=== PATIENT | female | born 1965 | race Caucasian/White ===

== ENCOUNTER 2023-07-27 06:02 | Day surgery (SDC) | payer OTHER ==
[~2023-07-27] VITALS: Ht 144.8 cm; Wt 71.7 kg
[2023-07-27] MEDS ORDERED: fentaNYL citrate 0.05 MG/ML VIAL ONE (07:14)
[2023-07-27] MEDS ORDERED: LIDOCAINE 2% 100 MG/5 ML UJET TP ONE (07:14)
[2023-07-27] MEDS ORDERED: fentaNYL citrate 0.05 MG/ML VIAL IVP ONE (09:45)
== END 2023-07-27 09:07 | disposition home or self-care (01) ==
LOC: MDS 06:02 → MMU 06:29 → MDS 09:07
PROVIDERS: ATTEND Internal Medicine Gastroenterology
DX: Z12.11 Encounter for screening for malignant neoplasm of colon (principal); K63.5 Polyp of colon; I10 Essential (primary) hypertension; E11.9 Type 2 diabetes mellitus without complications; K21.9 Gastro-esophageal reflux disease without esophagitis; G51.0 Bell's palsy; E78.00 Pure hypercholesterolemia, unspecified; Z86.73 Personal history of transient ischemic attack (TIA), and cerebral infarction without residual deficits; Z88.5 Allergy status to narcotic agent; Z79.4 Long term (current) use of insulin
CPT/HCPCS: 45385; 82948; J3010